=== PATIENT | female | born 1970 | race Two or more races ===

== ENCOUNTER → 2017-09-08 16:45 | Outpatient (CLI) | payer BC, SELFPAY ==
--- NOTE | 2017-09-08 | IMM_PTH ---
PATIENT: RAFAT GARCIA LOC: [facility] U#:[id number] AGE/SX: 54/F ROOM: RE09/08/[address]: Dr. Emeli Lord MD : 1970 BED: DIS: SPEC #: [id number] RECD: 09/10/17 10:01 STATUS: LAVERNE PALOMO #: [id number] MITCH: 09/08/17 00:[address]: Emeli Lord DEPT: IMMUNOHISTOCHEMISTRY RECD BY: Rubén Benitez Tissues: Right breast, NOS Procedures: CALPONIN-1 (add) CK5-6 (add) CK8 (add) E-CAD (add) HER2 LOPEZ (add) KI-67 (add) P53 (add) SC (add) P40 (add) ER (initial) PHYSICIAN & INSTITUTION [place] [id number] SPECIMEN INFORMATION: Tissue Source: Ultrasound-guided mammotome, right breast Clinical Info: Abnormal mammogram Specimen Number: [id number] CPT code: 85623, 23018 x6, 42770 x3 METHODOLOGY: Deparaffinized sections of prefer/formalin-fixed tissue or PAP/DQ stained slides are incubated with monoclonal/polyclonal antibodies/oligonucleotide probes. Localization is made via biotin free immunoperoxidase method. Appropriate controls are performed and reacted as expected. Results on target cell population are indicated in the following table: RESULTS: ANTIBODY / CLONE RESULT E-Cad (ECH-6) positive CK8 (77lolxR76) positive CK5-6 (D5 & 1684) negative Ki-67 (30-9) positive, low P53 (DO-7) positive, rare cells, weak P40 (BC28) negative * Calponin-1 (KA131I) negative * *?Positive in the area of ductal carcinoma in situ. MORPHOMETRIC ANALYSIS ER (clone 6F11) >95%, strong SC (clone 16/1E2) 12%, moderate Her-2Neu (clone CB11) 0 The prognostic test for HER2 is performed on formalin-fixed paraffin embedded tissue. A 3+ (positive) staining pattern is defined as intense, homogeneous, complete, circumferential membranous staining in >10% of contiguous tumor cells. A similar weak (2+) staining pattern is interpreted as equivocal. JENELLE follow-up testing is recommended for all equivocal cases. Positivity/negativity for ER/SC is reported if > or < 1% of the tumor cells are immuno- reactive, respectively. The ASCO/CAP criteria is used for scoring. Reference: Journal of Clinical Oncology, 2013; 31:9729-7837 & 2010; 16:8105-4481. Duration of fixation: 24 Hrs; Sample Adequate: Yes. These assays have not been validated on decalcified tissues. Results should be interpreted with caution given the likelihood of false negativity on decalcified specimens. These tests were developed and their performance characteristics determined by [facility]. They may not have been cleared or approved by the U.S. Food and Drug Administration. The FDA has determined that such clearance or approval is not necessary. 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 Positive for estrogen receptors (favorable prognostic indicator). Positive for progesterone receptors (favorable prognostic indicator). Negative for overexpression of JZX9oce. SJ:cecil 09/13/17
--- NOTE | 2017-09-08 | BRBX_PTH ---
PATIENT: RAFAT GARCIA LOC: [facility] U#:[id number] AGE/SX: 54/F ROOM: RE09/08/[address]: Dr. Emeli Lord MD : 1970 BED: DIS: SPEC #: [id number] RECD: 09/08/17 16:40 STATUS: LAVERNE PALOMO #: [id number] MITCH: 09/08/17 00:[address]: Emeli Lord DEPT: SURGICAL PATHOLOGY RECD BY: Fracisco Andrews Tissues: Right breast, NOS Procedures: Surgery Specimen Level IV HEADER OPERATION: Ultrasound-guided mammotome right breast PRE-OP DIAGNOSIS: Abnormal mammogram TISSUE SUBMITTED: Right breast ISCHEMIC TIME: <30 seconds FIXATION TIME: 24 hours MICROSCOPIC DIAGNOSIS Right breast, ultrasound-guided mammotome biopsy: Invasive ductal carcinoma, nuclear grade 1 (0.5 cm in greatest length). Focal ductal carcinoma in situ. See comment. GABI:cecil 09/10/17 COMMENT Immunohistochemistry ([id number]) supports the above diagnosis. Ductal carcinoma in situ shows cribriform pattern, low nuclear grade, and comprise about 10% of total tumor volume. ER/ND/Pau4wkl studies are being performed on sections of tumor and the results from this study will be reported separately ([id number]). Case has been reviewed in consultation with Dr. Sawyer who concurs with the above diagnosis. IDC:AM MICROSCOPIC DESCRIPTION Slides are reviewed. GROSS DESCRIPTION Received in fixative is one container labeled with the patient's name and designated right breast biopsy. The specimen consists of multiple elongated fragments of gleason-yellow fibroadipose tissue that in aggregate measure 1.5 x 0.8 x 0.1 cm. The entire specimen is submitted in one cassette. / SJ:rg 09/09/17 TC:0 CPT: 94798
== END ==
PROVIDERS: Visit Provider Surgery
DX: R92.8 Other abnormal and inconclusive findings on diagnostic imaging of breast (principal)
CPT/HCPCS: 88305; 88341; 88342

== ENCOUNTER 2017-09-27 07:39 | Day surgery (SDC) | payer BC, SELFPAY ==
--- NOTE | 2017-09-27 | IMM_PTH ---
PATIENT: RAFAT GARCIA LOC: [facility] [place] U#:[id number] AGE/SX: 46/F ROOM: RE09/27/[address]: Dr. Emeli Lord MD : 1970 BED: DIS: 09/27/2017 SPEC #: [id number] RECD: 09/29/17 13:23 STATUS: LAVERNE REQ #: [id number] MITCH: 09/27/17 00:[address]: Emeli Lord DEPT: IMMUNOHISTOCHEMISTRY RECD BY: Pialr Ellis ENTERED: 09/29/17 13:30 SP TYPE: IMMUNO OTHR DR: Dr. Dionte Meadows DO Tissues: A - Axillary lymph node, NOS B - Right breast, NOS Procedures: CK8 (initial) E-CAD (initial) CK8 (add) Pankeratin (add) PHYSICIAN & INSTITUTION [place] [address] SPECIMEN INFORMATION: Tissue Source: A ? [place] lymph node, right breast, B ? Right breast lumpectomy Clinical Info: Right breast invasive ductal carcinoma Specimen Number: [id number] A1, A2, A3, B9 CPT code: 78274 x2, 97864 x6 METHODOLOGY: Deparaffinized sections of prefer/formalin-fixed tissue or PAP/DQ stained slides are incubated with monoclonal/polyclonal antibodies/oligonucleotide probes. Localization is made via biotin free immunoperoxidase method. Appropriate controls are performed and reacted as expected. Results on target cell population are indicated in the following table: RESULTS: ANTIBODY / CLONE RESULT Block A1 CK8 (27nuhzC08) negative AE1-3 (AE1/AE3/PCK26) negative Block A2 CK8 (16oszjD31) negative AE1-3 (AE1/AE3/PCK26) negative Block A3 CK8 (01ovjwO60) negative AE1-3 (AE1/AE3/PCK26) negative Block B9 E-Cad (ECH-6) negative CK8 (60xadnF95) positive These tests were developed and their performance characteristics determined by [facility]. They may not have been cleared or approved by the U.S. Food and Drug Administration. The FDA has determined that such clearance or approval is not necessary. INTERPRETATION: A. [place] lymph node, right breast: Four out of four lymph nodes negative for carcinoma. B. Right breast lumpectomy: Focal lobular carcinoma in situ. AM:cecil 09/30/17
--- NOTE | 2017-09-27 08:00 | NM_ITS ---
PROCEDURE: NUCLEAR MEDICINE Injection Renner Node - RIGHT breast(s). REASON FOR EXAM: Female, 46 years old. Right breast cancer. TECHNIQUE: Renner node localization using radionuclide methods of the RIGHT breast(s) was performed following subcutaneous administration of 1.1 mCi of of sulfur colloid Tc-99m. FINDINGS: 1.1 mCi of Tc labeled sulfur colloid was injected in 4 equal aliquots in the mid lateral aspect of the right breast. NM/Lymph Node Injection Only IMPRESSION: Subcutaneous injection of 1.1 mCi of Tc labeled sulfur colloid for sentinel node imaging. The patient tolerated the procedure well. Electronically Signed: Davey Lawrence MD at 9:54 EDT Tel [phone], Service support ,
[2017-09-27 08:07] VITALS: BP 109/73; PULSE 76; RESP 16; TEMP 36.8; O2SAT 100; BMI 17.6
--- NOTE | 2017-09-27 09:16 | BI_ITS ---
SURGICAL BREAST SPECIMEN RADIOGRAPH CLINICAL: Document presence of tissue clip marker in biopsy specimen. FINDINGS: Specimen shows presence of tissue clip marker. Electronically Signed: Davey Lawrence MD at 8:19 EDT Tel [phone], Service support , BI/Breast Biopsy Specimen
--- NOTE | 2017-09-27 10:17 | OP.PN_ITS ---
Immediate Post-Op Note Date of Procedure: 09/27/17 Primary Surgeon/Physician: Emeli Lord perioperative educator: Yosef Barrera Pre-Operative Diagnosis: right breast cancer - upper outer quadrant Post-Operative Diagnosis: same Surgery/Procedure Performed:: right breast lumpectomy via wire localization, right axillary sentinel lymph node biopsy via blue dye and radioactive isotope localization Description of Surgical Findings:: right breast cancer in upper outer quadrant, 4 lymph nodes noted - negative for metastatic disease Estimated Blood Loss: < 10 ml Specimen's removed: right axillary lymph arnold tissue, right breast lumpectomy Type of Anesthesia:: General ASA Class: ASA2 Mod Systematic Disease - Admit VTE Documentation VTE Present on Admission: Yes VTE Mechan Device Prophylaxis: SCD's
--- NOTE | 2017-09-27 10:17 | PCM.OPRPT ---
Report of Operation Date of Procedure: 09/27/17 Pre-Operative Diagnosis: right breast cancer - upper outer quadrant Post-Operative Diagnosis: same Surgery/Procedure Performed:: right breast lumpectomy via wire localization, right axillary sentinel lymph node biopsy via blue dye and radioactive isotope localization Description of Surgical Findings:: right breast cancer in upper outer quadrant of breast - closest margin 0.5 cm from posterior, 4 lymph nodes - negative for breast cancer boiler operators supervisor: Yosef Barrera Type of Anesthesia:: General Anesthesiologist: Karen Chauhan Specimen's removed: right axillary lymph arnold tissue, right breast lumpectomy tissue Drains: none Estimated Blood Loss (mL): < 10 ml Fluids Replaced: 1500 ml Description of Procedure: After informed consent was given, the patient was brought into the Breast Stereotactic Radiology suite and placed in the prone position on the Luna stereotactic table. The patients right breast was placed in the opening at the head of the table. A blindmaker compression mammogram was then obtained in the CC view. The marker clip that was previously placed was identified. Stereo pictures of the lesion were then taken for XYZ coordinates. The Kopans needle was then positioned where it would be entering into the patients breast. The skin at this site was then cleansed with a surgical skin preparation. The skin and subcutaneous tissues at this site were then infiltrated with 1% xylocaine. The Kopans needle was then positioned into the patients breast at the proper coordinates of depth. A blindmaker film was obtained which revealed the wire in proper position. The patient was then placed in the supine position and the wire was taped into place. A unilateral mammogram in the CC and MLO view were then taken for use in the OR. The patient tolerated this portion of the procedure well and was brought to the AC awaiting surgery in the OR. The patient was then brought to the Operating Room and placed on the operating table in the supine position. Appropriate time out protocol was followed. She was then placed under general anesthesia. 2 cc of methylene blue dye was then injected into the periareolar area and around the biopsy cavity with a 25 g needle. Gentle massage was then done for a few minutes. The patient's right chest and neck area was then prepped with a betadine surgical skin preparation and appropriate sterile surgical drapes were placed. A skin incision was made in the inferior portion of the hair bearing area of the right axilla. It was carried through to the subcutaneous tissues using electrocautery. Any hemorrhage was controlled with electrocautery. A Weitlaner retractor was used for increased operative exposure. The Neoprobe device was brought into the operative field. The 10 second tumor count was [id number]. The 10 second count was 11 over the liver. The blue lymphatic vessels were then followed by blunt dissection until blue colored lymphatic arnold tissue was identified. These were from the surrounding tissue by blunt dissection and the vascular pedicles ligated with the Harmonic scalpel. The lymph arnold tissue 10 second count was in the 7000s. The lymph arnold tissue was then forwarded to pathology for frozen section. Pathology revealed that the lymph nodes were negative for metastatic disease. The Neoprobe was placed in the axilla. The 10 second count was 9. Hemostasis was carefully check with electrocautery. Victorino was applied in the cavity. The deep fascial tissues were approximated with vicryl suture. The subdermal tissues were reapproximated with 3-0 vicryl suture. The skin was reapproximated with running subcuticular 4-0 monocryl suture. Steristrips and cavilon was applied for reinforcement. The right breast quadrantectomy was then done. A wire had already been placed in the stereotactic biopsy room in the radiology department as described above. The skin and subcutaneous tissues at the site of the breast lesion was then infiltrated with 1% xylocaine with epinephrine. A transverse skin incision was then made with a 15 blade scalpel and carried down through to the subcutaneous tissues. Hemostasis was controlled with electrocautery. The wire was then palpated out and brought into the wound from outside. The breast tissue surrounding the wire was then carefully palpated out and from the surrounding tissues using electrocautery. The breast tissue, once from the breast, was then forwarded to the radiology department, where a specimen mammogram revealed that the lesion was within the specimen. The breast tissue was then forwarded to pathology for analysis. Pathology review revealed that the closest margin was posterior with a measurement of 5mm. The wound cavity was carefully examined. No further suspicious tissue was palpated or visualized. Hemostasis was carefully controlled with electrocautery. The subdermal tissues were then approximated with vicryl suture. The incision was then reapproximated close using running monocryl suture. Cavilon and steristrips were then placed to reinforce the skin closure. A sterile dressing was then applied. The patient was then brought to the Recovery Room in stable condition. - Complications none noted - Admit VTE Documentation VTE Present on Admission: Yes VTE Mechan Device Prophylaxis: SCD's
[2017-09-27] MEDS: Cefazolin 2 GM in 0.9% Normal Saline 100 ML IV (10:20)
--- NOTE | 2017-09-27 10:21 | OP.PCM_ITS ---
Report of Operation Date of Procedure: 09/27/17 Pre-Operative Diagnosis: right breast cancer - upper outer quadrant Post-Operative Diagnosis: same Surgery/Procedure Performed:: right breast lumpectomy via wire localization, right axillary sentinel lymph node biopsy via blue dye and radioactive isotope localization Description of Surgical Findings:: right breast cancer in upper outer quadrant of breast - closest margin 0.5 cm from posterior, 4 lymph nodes - negative for breast cancer statistical financial analyst: Yosef Barrera Type of Anesthesia:: General Anesthesiologist: Karen Chauhan Specimen's removed: right axillary lymph arnold tissue, right breast lumpectomy tissue Drains: none Estimated Blood Loss (mL): < 10 ml Fluids Replaced: 1500 ml Description of Procedure: After informed consent was given, the patient was brought into the Breast Stereotactic Radiology suite and placed in the prone position on the Luna stereotactic table. The patient?s right breast was placed in the opening at the head of the table. A phlebotomy services technician compression mammogram was then obtained in the CC view. The marker clip that was previously placed was identified. Stereo pictures of the lesion were then taken for XYZ coordinates. The Kopans needle was then positioned where it would be entering into the patient?s breast. The skin at this site was then cleansed with a surgical skin preparation. The skin and subcutaneous tissues at this site were then infiltrated with 1% xylocaine. The Kopans needle was then positioned into the patient?s breast at the proper coordinates of depth. A phlebotomy services technician film was obtained which revealed the wire in proper position. The patient was then placed in the supine position and the wire was taped into place. A unilateral mammogram in the CC and MLO view were then taken for use in the OR. The patient tolerated this portion of the procedure well and was brought to the AC awaiting surgery in the OR. The patient was then brought to the Operating Room and placed on the operating table in the supine position. Appropriate time out protocol was followed. She was then placed under general anesthesia. 2 cc of methylene blue dye was then injected into the periareolar area and around the biopsy cavity with a 25 g needle. Gentle massage was then done for a few minutes. The patient's right chest and neck area was then prepped with a betadine surgical skin preparation and appropriate sterile surgical drapes were placed. A skin incision was made in the inferior portion of the hair bearing area of the right axilla. It was carried through to the subcutaneous tissues using electrocautery. Any hemorrhage was controlled with electrocautery. A Weitlaner retractor was used for increased operative exposure. The Neoprobe device was brought into the operative field. The 10 second tumor count was 10042x. The 10 second count was 11 over the liver. The blue lymphatic vessels were then followed by blunt dissection until blue colored lymphatic arnold tissue was identified. These were from the surrounding tissue by blunt dissection and the vascular pedicles ligated with the Harmonic scalpel. The lymph arnold tissue 10 second count was in the 7000s. The lymph arnold tissue was then forwarded to pathology for frozen section. Pathology revealed that the lymph nodes were negative for metastatic disease. The Neoprobe was placed in the axilla. The 10 second count was 9. Hemostasis was carefully check with electrocautery. Victorino was applied in the cavity. The deep fascial tissues were approximated with vicryl suture. The subdermal tissues were reapproximated with 3-0 vicryl suture. The skin was reapproximated with running subcuticular 4-0 monocryl suture. Steristrips and cavilon was applied for reinforcement. The right breast quadrantectomy was then done. A wire had already been placed in the stereotactic biopsy room in the radiology department as described above. The skin and subcutaneous tissues at the site of the breast lesion was then infiltrated with 1% xylocaine with epinephrine. A transverse skin incision was then made with a 15 blade scalpel and carried down through to the subcutaneous tissues. Hemostasis was controlled with electrocautery. The wire was then palpated out and brought into the wound from outside. The breast tissue surrounding the wire was then carefully palpated out and from the surrounding tissues using electrocautery. The breast tissue, once from the breast, was then forwarded to the radiology department, where a specimen mammogram revealed that the lesion was within the specimen. The breast tissue was then forwarded to pathology for analysis. Pathology review revealed that the closest margin was posterior with a measurement of 5mm. The wound cavity was carefully examined. No further suspicious tissue was palpated or visualized. Hemostasis was carefully controlled with electrocautery. The subdermal tissues were then approximated with vicryl suture. The incision was then reapproximated close using running monocryl suture. Cavilon and steristrips were then placed to reinforce the skin closure. A sterile dressing was then applied. The patient was then brought to the Recovery Room in stable condition. - Complications none noted - Admit VTE Documentation VTE Present on Admission: Yes VTE Mechan Device Prophylaxis: SCD's
[2017-09-27] MEDS: Methylene Blue 1% 100 MG/10 ML VIAL (10:39)
[2017-09-27] MEDS: 0.9% Saline Lock 10 ML Syringe IV (10:39)
--- NOTE | 2017-09-27 10:55 | AXNB_PTH ---
PATIENT: RAFAT GARCIA [place] [facility] [id number] AGE/SX: 46/F ROOM: RE09/27/[address]: Dr. Emeli Lord MD : 1970 BED: DIS: 09/27/2017 SPEC #: [id number] RECD: 09/27/17 10:59 STATUS: [place]ER[place] REGrace #: [id number] MITCH: 09/27/17 10:[address]: Emeli Lord DEPT: SURGICAL PATHOLOGY RECD BY: Rubén Benitez ENTERED: 09/27/17 13:36 SP TYPE: AX NODE BX OTHR DR: Dr. Dionte Meadows, Tissues: A - Axillary lymph node, NOS B - Right breast, NOS Procedures: Frozen Section (charge) Frozen Section Add'l ([facility]) Surgery Specimen Level V Frozen (no charge) HEADER OPERATION: Breast lumpectomy, sentinel node biopsy, NL, frozen section PRE-OP DIAGNOSIS: Right breast invasive ductal carcinoma TISSUE SUBMITTED: A - [place] lymph node sent at 1055 to pathology (right breast), B - Right breast lumpectomy with wire sent to mammography, then pathology, check margins?one long suture ? lateral, one short ? superior, two long ? inferior medial FROZEN SECTION DIAGNOSIS A. [place] lymph nodes, right breast: Four out of four lymph nodes negative for metastatic carcinoma. SJ:crystal 09/27/17 MICROSCOPIC DIAGNOSIS A. Right axillary sentinel lymph nodes, biopsy: Four out of four lymph nodes negative for carcinoma. B. Right breast, lumpectomy: Invasive ductal carcinoma. See cancer checklist. AM:cecil 09/30/17 COMMENT INVASIVE BREAST CANCER SUMMARY: Specimen: Partial breast Procedure: Excision with wire guidance Specimen integrity: Single intact specimen. Specimen size: 5 x 3 x 1.5 cm Specimen laterality: Right breast Invasive tumor size: 0.8 x 0.6 x 0.5 cm Tumor focality: Single focus of invasive carcinoma Macroscopic and Microscopic extent of tumor: Skin: Not present Nipple: Not present Skeletal muscle: Not present Histologic type of invasive carcinoma: Invasive ductal carcinoma Histologic Grade ([place] grade): Glandular/tubular differentiation score: 1 Nuclear pleomorphism score: 2 Mitotic count score: 1 Overall grade: Grade 1 (total score of 4) Margins: Uninvolved by invasive carcinoma. Distance from closest (posterior) margin ? 5 mm Lymph-Vascular invasion: Not identified Dermal lymph-vascular invasion: Not identified Ductal carcinoma in situ (DCIS): Not identified Lobular carcinoma in situ (LCIS): Present Estimated size: 5.5 x 2 x 1 mm Number of block with LCIS: 8 out of 19 Nuclear grade: Grade 1 (low grade) Margins: <1 mm from closest (posterior) margin of excision. Lymph nodes: Number of sentinel lymph nodes examined - 4 Total number of lymph nodes examined (sentinel and nonsentinel) - 4 No evidence of macrometastases, micrometastases or isolated tumor cells (see specimen A)> Microcalcifications - present in both carcinoma and non-neoplastic tissue. Treatment effect - no known presurgical therapy. Additional pathologic findings: Atypical ductal hyperplasia, atypical lobular hyperplasia, focal intraductal papilloma and fibrocystic change. Ancillary studies: Previously performed on same tumor ([id number] / [id number]). ER: >96%, strong MT: 12%, moderate Her2 benjamin: 0 ([facility]) PATHOLOGIC STAGE: T1b N0(sn) Mx The above summary is in compliance with [employer] [place] [employer] (CAP) Cancer Protocols Checklist and [place] Joint Committee on Cancer (AJCC), Staging Manual, 8th Ed. Immunohistochemistry ([id number]) supports the above diagnosis. Case has been reviewed in consultation with Dr. Starr who concurs with the above diagnosis. IDC:[id number] MICROSCOPIC DESCRIPTION Slides are reviewed. GROSS DESCRIPTION A - Received fresh for frozen section diagnosis labeled with the patient's name is a specimen designated sentinel lymph node, right breast. The specimen consists of a piece of adipose tissue measuring 3.5 x 2.5 x 1 cm. Four nodules consistent with lymph nodes are identified measuring 0.3 to 1 cm in greatest dimension. The entire specimen is submitted in three cassettes as follows: 1 ? frozen section, two lymph nodes, one lymph node is inked black, 2 - frozen section, two lymph nodes, one lymph node is inked black, 3 ? rest of the specimen. / SJ:cecil 09/27/17 B - Received fresh for OR consultation labeled with the patient's name is a specimen designated right breast lumpectomy with wire. The specimen consists of a wire-guided fragment of gleason-yellow fibrofatty tissue measuring 5 x 3 x 1.5 cm. The specimen is differentially inked as follows: anterior ? yellow, posterior ? black, superior ? blue, inferior ? green, medial ? red and lateral ? orange. Serial sections reveal a firm, gleason-white nodule measuring 0.8 x 0.6 x 0.5 cm. The nodule is located 0.5 cm from its closest (posterior) margin of excision. The remainder of the breast parenchyma is yellow and white in color. No other mass lesions are identified. The specimen is serially sectioned and totally submitted in 19 cassettes. / AM:cecil 09/28/17 TC:0 CPT: 57009, 48061, 12643, 82676 x2 ADDENDUM ADDENDUM ADDENDUM ADDENDUM ADDENDUM ADDENDUM ADDENDUM ADDENDUM 10/28/2017 09:28 ADDENDUM 10/28/2017 09:28 ADDENDUM 10/28/2017 09:28 ADDENDUM 10/28/2017 09:28 ADDENDUM 10/28/2017 09:28 An order for Oncotype testing was received from Dr. Rosas. This necessitated case review, block and slide selection by pathologist at [facility]. Breast Cancer Recurrence Score = 14 Results of the complete Oncotype testing ([facility] report) are viewable in EMR under: Reports - Pathology - Lab Pathology Report, Scanned.
[2017-09-27] MEDS: Bupiv/Epi 0.5% Mpf 30 ML Vial (12:00)
[2017-09-27 12:29] VITALS: BP 108/71; BP 109/73; PULSE 82; RESP 16; TEMP 36.7; O2SAT 100
[2017-09-27 12:30] VITALS: BP 104/70; BP 109/73; PULSE 84; RESP 16; O2SAT 100
[2017-09-27 12:45] VITALS: BP 109/73; BP 112/73; PULSE 75; RESP 16; O2SAT 100
[2017-09-27 12:48] VITALS: BP 109/73; BP 112/70; PULSE 73; RESP 16; TEMP 36.3; O2SAT 100
== END 2017-09-27 13:56 | disposition home or self-care (01) ==
LOC: SDC 07:39 → AC 07:47
PROVIDERS: Family Provider Student in an Organized Health Care Education/Training Program; PCP Student in an Organized Health Care Education/Training Program; Visit Provider Surgery
PROC: (CPT 19301; principal; 2017-09-27 10:15)
DX: C50.411 Malignant neoplasm of upper-outer quadrant of right female breast (principal); Z17.0 Estrogen receptor positive status [ER+]
CPT/HCPCS: 19301; 38500; 19281; 38792; 76098; 88305; 88307; 88331; 88332; 88341; 88342; A9541; J7050; J7120; A4216; J2405

== ENCOUNTER → 2023-12-03 | Outpatient (CLI) | payer BC, SELFPAY ==
--- NOTE | 2023-12-03 08:20 | MRI_ITS ---
INDICATION: R TINNITUS, R HEARING LOSS EXAMINATION: MRI - MR Brain WO/W Contrast TECHNIQUE: Multiplanar and multisequence MR images of the brain were obtained without and with gadolinium. IV Contrast Dosage and Agent: None. COMPARISON: FINDINGS: BRAIN PARENCHYMA: No MRI evidence of hemorrhage. No evidence of acute infarct. No intracranial mass or mass effect. There is preservation of the cannon/white matter interface. Normal sella turcica, pituitary gland, infundibular stalk, optic chiasm and hypothalamus. Posterior fossa structures are unremarkable. INTERNAL AUDITORY CANALS: The internal auditory canals are well visualized and patent. No mass identified. CSF SPACES: Appropriate for age. No hydrocephalus. Basal cisterns are patent. VASCULAR SYSTEM: Normal flow voids in the major intracranial circulation. CALVARIUM, SKULL BASE, PARANASAL SINUSES AND MASTOID AIR CELLS: Clear. No expansile changes. ORBITS: Both globes, extraocular muscles, optic nerves and retrobulbar fat appear unremarkable. MRI/Brain W/WO Contrast IMPRESSION: Negative MRI Brain and Internal Auditory Canals. Electronically Signed: Gui Walter MD at 19:43 EDT Reading Location ID and State: [facility] / [place] Tel , Service support ,
== END | disposition home or self-care (01) ==
PROVIDERS: PCP Student in an Organized Health Care Education/Training Program; Visit Provider Otolaryngology
DX: H93.11 Tinnitus, right ear (principal); H91.21 Sudden idiopathic hearing loss, right ear
CPT/HCPCS: 70553; A9575